=== PATIENT | female | born 1985 | race American Indian/Alaskan Native ===

== ENCOUNTER 2019-04-03 03:51 | Emergency (ER) | payer BC ==
[2019-04-03] MEDS ORDERED: ATIVAN IM ONE ×2 (04:49→05:45)
[2019-04-03] MEDS ORDERED: GEODON IM ONE ×2 (04:49→04:52)
[2019-04-03] MEDS ORDERED: ATIVAN ONE (04:51)
--- NOTE | 2019-04-03 05:04 | Emergency Department Report ---
ED Psych HPI - General Chief Complaint: Psych Stated Complaint: NO SLEEP Time Seen by Provider: 04/03/19 04:48 Source: patient, family Mode of arrival: Wheelchair - History of Present Illness Initial Comments: 37-year-old female with unspecified psychotic disorder presents to ED for mental health evaluation. states symptoms began 2 days ago, patient has been unable to sleep. It progressed to patient babbling incoherently, screaming out "Help me!" states the last time the patient had an episode such as this was approximately 10 years ago and she was hospitalized at a psych facility at that time. I spoke to patient's mother over the phone who states that since the age of 21 patient has had "four psychotic breaks." Patient was hospitalized twice, however mother states she was never given a diagnosis, and was never discharged on medications. Mother states her episodes always start out with her being days, then she begins babbling, then screaming and everything becomes progressively worse. In the past she was given Haldol and Ativan, allowed to s leep, and would then be back to her normal self afterward. took patient to [facility] on yesterday. She was given seroquel and discharged home. states behavior has continued. Patient reports she is hearing voices "from everywhere" saying things such as, "Don't do it." states pt occasionally drinks, but nothing recently; denies drug use. Family is requesting inpatient admission. -: days(s) (2) Associated Psychiatric Symptoms: racing thoughts, auditory hallucinations History of same: Yes Quality: getting worse Improves With: none Worsens With: medication Associated Symptoms: denies other symptoms Treatments Prior to Arrival: none - Related Data Allergies Allergy/AdvReac Type Severity Reaction Status Date / Time No Known Allergies Allergy Verified 04/03/19 03:58 ED Review of Systems ROS: Stated complaint: NO SLEEP Other details as noted in HPI Comment: All other systems reviewed and negative Psychiatric: auditory hallucinations ED Past Medical Hx - Past Medical History Previous Medical History?: No - Surgical History Past Surgical History?: Yes Additional Surgical History: tooth implant - Social History Smoking Status: Never Smoker Substance Use Type: None ED Physical Exam - General Limitations: No Limitations General appearance: alert - Head Head exam: Present: atraumatic, normocephalic - Eye Eye exam: Present: normal appearance - ENT ENT exam: Present: mucous membranes moist - Neck Neck exam: Present: normal inspection - Respiratory Respiratory exam: Present: normal lung sounds bilaterally. Absent: respiratory distress - Cardiovascular Cardiovascular Exam: Present: normal rhythm, tachycardia - GI/Abdominal GI/Abdominal exam: Absent: distended - Extremities Exam Extremities exam: Present: normal inspection - Neurological Exam Neurological exam: Present: alert - Psychiatric Psychiatric exam: Present: agitated, other (speech incoherent at times, screaming "Help me!" ) - Skin Skin exam: Present: warm, dry, intact, normal color ED Course Vital Signs 04/03/19 04/03/19 04/03/19 05:24 07:00 08:30 Temperature 98.6 F 98.7 F Pulse Rate 102 H 82 Respiratory 18 16 18 Rate Blood Pressure 141/89 102/63 [Left] O2 Sat by Pulse 95 100 99 Oximetry 04/03/19 13:00 Temperature 98.9 F Pulse Rate 121 H Respiratory 18 Rate Blood Pressure 117/70 [Left] O2 Sat by Pulse 95 Oximetry ED Medical Decision Making - Lab Data Result diagrams: 04/03/19 05:53 04/03/19 05:53 - Medical Decision Making Pt placed on a 1013 for psychosis. Will dispo per psych. - Differential Diagnosis bipolar d/o, unspecified psychosis, schizophrenia, PTSD Critical care attestation.: If time is entered above; I have spent that time in minutes in the direct care of this critically ill patient, excluding procedure time. ED Disposition Clinical Impression: Psychosis Disposition: [id number]/TX-65 PSY HOSP/PSY UNIT Is pt being admited?: No Condition: Stable Referrals: SELVIN SENIOR MD [Referring] - 3-5 Days
[2019-04-03 06:02] LABS: Bilirubin,Urine NEG (Negative); Blood,Urine NEG (Negative); Color,Urine Yellow (Yellow); Mucus,Urine FEW /HPF; Urobilinogen,Urine < 2.0 mg/dL (<2.0)
[2019-04-03 06:02] LABS: Basophils % (Auto) 0.9 % (0.0-1.8); Eosinophils % (Auto) 0.3 % (0.0-4.3); Hematocrit 34.7 % (30.3-42.9); Hemoglobin 11.5 gm/dl (10.1-14.3); Lymphocytes # (Auto) 1.2 K/mm3 (1.2-5.4); Mean Corpuscular HGB Conc 33 % (30-34); Mean Corpuscular Volume 79 fl (79-97); Monocytes # (Auto) 0.4 K/mm3 (0.0-0.8); Monocytes % (Auto) 9.4 % (0.0-7.3); Platelet Count 354 K/mm3 (140-440); Red Cell Distribution Width 15.8 % (13.2-15.2)
[2019-04-03 06:14] LABS: BUN/Creatinine Ratio 10; Blood Urea Nitrogen 7 mg/dL (7-17); Calcium 8.6 mg/dL (8.4-10.2); Hemolysis Index 1
[2019-04-03 06:16] LABS: Amphetamine Screen,Urine PRESUMPTIVE NEGATIVE; Benzodiazepines Screen,Urine PRESUMPTIVE NEGATIVE; Cannabinoid Screen,Urine PRESUMPTIVE NEGATIVE; Cocaine Screen,Urine PRESUMPTIVE NEGATIVE; Methadone Screen,Urine PRESUMPTIVE NEGATIVE; Opiate Screen,Urine PRESUMPTIVE NEGATIVE
[2019-04-03 13:52] VITALS: BP 117/70
== END 2019-04-03 19:58 ==
LOC: ED 03:51
DX: F29 Unspecified psychosis not due to a substance or known physiological condition (principal)
CPT/HCPCS: 36415; 80048; 80307; 81001; 84703; 85025; 96372; 99285; G0480; J2060; J3486; 80320